=== PATIENT | female | born 1940 | race Caucasian/White ===

== ENCOUNTER → 2017-10-03 | Outpatient (CLI) | payer MEDICARE, OTHER ==
[~2017-10-03] MED LIST: ASPIR 8181 MG PO; CALCIUM 600 +1 EAC1 PO; CIPROFLOXIN HC2.5 M1 OPHTHALMIC; DIVALPROEX SOD250 M3 PO; IMITREX100 MG PO; LOVASTAT20 PO; NABUMETONE 750750 M1 PO; NAPROSYN500 MG PO; NORCO 5-325 TA1 EACH PO; OMEPRAZOLE20 M2 PO; TRAMADOL 50 MG50 MG PO; TRIAMCINOLONE A80 G2 TOP; TYLENOL325 MG PO; VERAPAMIL HCL80 MG; ZOLOFT50 MG PO
== END ==
LOC: M.RAD 15:15
DX: Z12.31 Encounter for screening mammogram for malignant neoplasm of breast (principal); E78.00 Pure hypercholesterolemia, unspecified

== ENCOUNTER 2017-10-09 17:57 | Inpatient (IN) | payer MEDICARE, OTHER ==
[~2017-10-09] VITALS: Ht 170.2 cm; Wt 83.0 kg
[~2017-10-09 17:57] MED LIST changes: -TYLENOL325 MG PO
[2017-10-09 18:01] VITALS: BP 142/64
[2017-10-09 18:23] LABS: ABSOLUTE BASOPHILS 0.2 thou/uL (0.0-0.2); ABSOLUTE EOSINOPHILS 0.2 thou/uL (0.0-0.7); ABSOLUTE LYMPHOCYTES 2.9 thou/uL (0.8-5.3); ABSOLUTE MONOCYTES 1.1 thou/uL (0.0-1.2); ABSOLUTE NEUTROPHILS 10.7 thou/uL (1.6-8.1); BASOPHILS 1.2 %; EOSINOPHILS 1.2 %; HEMATOCRIT 39.6 % (37.0-47.0); HEMOGLOBIN 13.2 gm/dL (12.0-15.0); LYMPHOCYTES 19.1 %; MCH 30.7 pg (26.0-34.0); MCHC 33.3 g/dL (28.0-37.0); MCV 92.2 fL (80.0-100.0); MONOCYTES 7.4 %; MPV 9.8 fl. (7.2-11.1); NUCLEATED RBCS 0 /100WBC; PLATELET COUNT* 217 thou/uL (150-400); POLYS 71.1 %; RBC 4.29 mil/uL (4.20-5.00); RDW-CV 13.9 % (10.5-14.5); WBC 15.1 thou/uL (4.0-11.0)
[2017-10-09 18:35] LABS: ANION GAP 10 mmol/L (7-16); BUN 38 mg/dL (7-18); CALCIUM 8.4 mg/dL (8.5-10.1); CHLORIDE 106 mmol/L (98-107); CO2 23 mmol/L (21-32); CREATININE 0.8 mg/dL (0.6-1.3); GLUCOSE 128 mg/dL (70-99); POTASSIUM 4.3 mmol/L (3.5-5.1); SODIUM 139 mmol/L (136-145)
[2017-10-09 18:38] LABS: APTT 25.5 Seconds (25.0-31.3)
[2017-10-09 18:46] LABS: ALBUMIN 3.7 g/dL (3.4-5.0); ALKALINE PHOSPHATASE 61 U/L (46-116); NT-PRO BRAIN NAT PEPTIDE 181 pg/mL (<300); SGOT 20 U/L (15-37); SGPT 29 U/L (30-65); TOTAL BILIRUBIN 0.4 mg/dL (<0.1-1.0); TROPONIN-I LEVEL <0.06 ng/mL (<0.06)
[2017-10-09 19:45] VITALS: BP 129/63
[2017-10-10] VITALS: BP 87/45
[2017-10-10 04:00] VITALS: BP 127/66
[2017-10-10 08:00] VITALS: BP 118/64
--- NOTE | 2017-10-10 10:30 | EKG ---
[place] [address] ELECTROCARDIOGRAM REPORT Name: KIRBY JOAQUIN Room: [address] ADM IN M.R.#: [id number] Admission: 10/09/17 Attend Phys: Perico Berry MD Discharge: Date of : 44 Report #: [id number] THIS REPORT FOR: //name// [facility] ED Test Date: 2017-10-09 Test Time: 18:11:19 Pat Name: KIRBY JOAQUIN Department: Room: [facility] Gender: F [employer] Supervisor: Ed ROMERO : 1940 Requested By: Antony Escalera Order Number: [id number] MD: Skyler Izquierdo Measurements Intervals Valier Rate: 59 P: 46 VA: 181 QRS: 2 QRSD: 93 T: 91 QT: 464 QTc: 460 Interpretive Statements Sinus rhythm Abnormal R-wave progression, early transition LVH by voltage with repolarization changes Compared to ECG 04/08/2010 22:38:29 Left ventricular hypertrophy now present Electronically Signed On 10-10-2017 10:30:02 CDT by Skyler Izquierdo [email or web address] <ELECTRONICALLY SIGNED> By: Skyler Izquierdo MD, [facility] 10/10/17 1030 1811 1811 Skyler Izquierdo MD, [facility] /EPI
--- NOTE | 2017-10-10 15:30 | 2DMMODE ---
[place] [address] 2 D/M-MODE ECHOCARDIOGRAM Name: KIRBY JOAQUIN Room: [address] IN [facility]#: [id number] Admission: 10/09/17 Attend Phys: Perico Berry, Discharge: Date of : 44 Date of Service: 10/10/17 1530 Report #: [id number] THIS REPORT FOR: //name// APPROVED REPORT Study performed: 10/10/2017 14:16:51 EXAM: Comprehensive 2D, Doppler, and color-flow Echocardiogram Patient Location: In-Patient Room #: [facility] Status: routine BSA: 1.95 HR: 77 bpm BP: 118/64 mmHg Rhythm: NSR Other Information Study Quality: Good Indications Dizziness 2D Dimensions LVEF(%): 79.91 (>50%) IVSd: 10.77 (7-11mm) LVOT Diam: 19.44 (18-24mm) LVDd: 50.72 mm PWd: 9.04 (7-11mm) Ascending Ao: 35.74 (22-36mm) LVDs: 25.98 (25-40mm) Aortic Root: 28.26 mm Souza's LVEF: 79.91 % Volumes Left Atrial Volume (Systole) LA ESV Index: 29.00 mL/m2 Aortic Valve AoV Peak Vaibhav.: 1.60 m/s AO Peak Gr.: 10.22 mmHg LVOT Max P.66 mmHg AO Mean Gr.: 5.30 mmHg LVOT Mean P.95 mmHg LVOT Max V: 1.29 m/s AO V2 VTI: 30.10 cm LVOT Mean V: 0.78 m/s VIKTOR (VTI): 2.52 cm2 LVOT V1 VTI: 25.56 cm Mitral Valve E/A Ratio: 0.72 [place] [address] 2 D/M-MODE ECHOCARDIOGRAM Name: KIRBY JOAQUIN Room: [address] IN .R.#: [id number] Admission: 10/09/17 Attend Phys: Perico Berry, Discharge: Date of : 44 Date of Service: 10/10/17 1530 Report #: [id number] MV Decel. Time: 302.50 ms MV E Max Vaibhav.: 0.59 m/s MV PHT: 87.73 ms MVA (PHT): 2.51 cm2 TDI E/Lateral E': 5.90 E/Medial E': 8.43 Medial E' Vaibhav.: 0.07 m/s Lateral E' Vaibhav.: 0.10 m/s Pulmonary Valve PV Peak Vaibhav.: 1.13 m/s PV Peak Gr.: 5.11 mmHg Tricuspid Valve RAP Estimate: 5.00 mmHg TR Peak Gr.: 22.26 mmHg RVSP: 27.26 mmHg PA Pressure: 27.26 mmHg Left Ventricle The left ventricle is normal size. There is normal LV segmental wall motion. There is normal left ventricular wall thickness. Left ventricular systolic function is normal. The left ventricular ejection fraction is within the normal range. LVEF is 65-70%. Grade I - abnormal relaxation pattern. Right Ventricle The right ventricle is normal size. The right ventricular systolic function is normal. Atria Left atrium is mildly dilated. The right atrium size is normal. Aortic Valve The aortic valve is normal in structure. Mild aortic regurgitation. There is no aortic valvular stenosis. Mitral Valve The mitral valve is normal in structure. Mild mitral regurgitation. No evidence of mitral valve stenosis. Tricuspid Valve The tricuspid valve is normal in structure. Trace tricuspid regurgitation. pa pressure 30 mm [place] [address] 2 D/M-MODE ECHOCARDIOGRAM Name: KIRBY JOAQUIN Room: [address] IN [facility]#: [id number] Admission: 10/09/17 Attend Phys: Perico Berry, Discharge: Date of : 44 Date of Service: 10/10/17 1530 Report #: [id number] The pulmonary valve is normal in structure. There is no pulmonic valvular regurgitation. Great Vessels The aortic root is normal in size. IVC is normal in size and collapses with >50% inspiration Pericardium There is no pericardial effusion. <Conclusion> LVEF is 65-70%. Left atrium is mildly dilated. Mild aortic regurgitation. Mild mitral regurgitation. <ELECTRONICALLY SIGNED> By: Skyler Izquierdo MD, FACC 10/10/17 1530 1530 1530 Skyler Izquierdo MD, FACC /INF
[2017-10-10 15:31] VITALS: BP 105/50
[2017-10-10 17:11] VITALS: BP 105/50
--- NOTE | 2017-10-17 08:35 | CON ---
[address] [address] CONSULTATION Name: KIRBY JOAQUIN Room: [address] IN M.R.#: [id number] Admission: 10/09/17 Attend Phys: Perico Berry MD Discharge: 10/10/17 Date of : 44 Report #: [id number] THIS REPORT FOR: //name// CC: Perico Miranda DATE OF SERVICE: 10/10/2017 HISTORY OF PRESENT ILLNESS: This is a 77-year-old female patient who was evaluated by me for headache and dizziness. She indicates that she has a longstanding headache virtually all her adult life. She has been diagnosed with migraine headache. She had dizziness this time and this dizziness was generalized. It started spontaneously without any trauma. There was no aggravating or relieving factor for it. She feels much better this morning than she did yesterday, but this morning she has some headache. REVIEW OF SYSTEMS: Positive for longstanding history of migraine. This dizziness is new. She usually does not get dizzy. She has a history of hernia surgery, bladder lift, high blood pressure. She does have a history of high cholesterol and hiatus hernia. She does take 81 mg of aspirin daily. She is on a statin. She has not had any ear problems in the past. Her vision is about the same. She is not having any cardiac, respiratory, GI, , musculoskeletal, constitutional, dermatological, hematological, psychiatric, throat, allergic symptom associated with present symptomatology. PAST MEDICAL HISTORY: Negative for dizziness. FAMILY HISTORY: Negative for any early age stroke. SOCIAL HISTORY: She does not believe she is under any stress. She denies the use of alcohol and tobacco. PHYSICAL EXAMINATION: Indicate the patient is alert, responsive, able to follow simple and complex command. Cranial nerve examination 2-12 looks unremarkable. She has symmetrical strength, sensation, reflexes and tone in all 4 extremities. There is no meningeal sign. There is no carotid bruit. Cardiac examinations appear unremarkable. No respiratory difficulty was noticed. Pulses are palpable. She has no edema, cyanosis or jaundice. She is a well-developed individual who does not have any dysmorphic features of eyes, ears and face. Her thyroid examination showed no mass. Blood pressure is 118/64, respirations 15, pulse is 67, temperature is 98.1. LABORATORY DATA: White count is trace high at 15.1. Her MRI and MRA of the brain was reviewed and they were unremarkable. IMPRESSION: It is unlikely that there is any [place] [address] CONSULTATION Name: KIRBY JOAQUIN Room: [address]#: [id number] Admission: 10/09/17 Attend Phys: Perico Berry MD Discharge: 10/10/17 Date of : 44 Report #: [id number] patient's dizziness. It can be ENT or some systemic pathology. I will suggest working her up for alternate etiology for the patient's symptom, especially ENT and cardiac. RECOMMENDATIONS: 1. We will check the patient's carotid Doppler. 2. I will stop her sumatriptan. 3. We will await the carotid Doppler. 4. Because of dizziness I will go ahead and do an echocardiogram. 5. Her sed rate is already done, is unremarkable. 6. If all these tests are okay, then from neurological perspective we do not need to do anything if she becomes better. Thank you very much for this referral. <ELECTRONICALLY SIGNED> By: Nikolay Browne MD 10/17/17 0835 1216 1814Pminerva Browne MD /nt
[2017-10-25] MEDS ORDERED: NABUMETONE 750750 M1 PO (14:26)
[2017-10-25] MEDS ORDERED: TRAMADOL 50 MG50 MG PO (14:26)
[2017-10-26] MEDS ORDERED: TYLENOL325 MG PO (16:47)
== END 2017-10-10 17:53 | disposition home or self-care (01) | DRG 641 ==
LOC: M.ERS 17:57 → M.2W 18:50 → M.TBA-ER 18:50 → M.2W 19:50
PROVIDERS: Family Medicine
DX: E86.0 Dehydration (principal); I51.89 Other ill-defined heart diseases; K21.9 Gastro-esophageal reflux disease without esophagitis; E78.00 Pure hypercholesterolemia, unspecified; I11.9 Hypertensive heart disease without heart failure; G43.909 Migraine, unspecified, not intractable, without status migrainosus; Z79.82 Long term (current) use of aspirin; Z79.899 Other long term (current) drug therapy; Z90.49 Acquired absence of other specified parts of digestive tract

== ENCOUNTER → 2017-10-25 | Outpatient (CLI) | payer MEDICARE, OTHER ==
[~2017-10-25] MED LIST changes: +TYLENOL325 MG PO
--- NOTE | 2017-11-09 16:41 | PAINCON ---
[address] [address] PAIN MANAGEMENT CONSULTATION Name: KIRBY JOAQUIN Room: [facility]#: [id number] Admission: 10/25/17 Attend Phys: Julio Lopez MD Discharge: Date of : 44 Report #: [id number] THIS REPORT FOR: //name// CC: Julio Miranda DO DATE OF SERVICE: 10/25/2017 CHIEF COMPLAINT: Low back pain and pain that radiates down into the right leg and foot with occasional numbness and tingling. FOLLOWUP HISTORY: The patient has been followed in the Pain Clinic by Dr. Antony Briones. This is my first visit with the patient. She has a history of low back pain. She has undergone epidural steroid injections in the past and found benefit from these. She describes pain that is radiating down into her right leg and her foot. She has some numbness and tingling in this area. This problem has been going on for a number of years. Epidural steroid injections have provided benefit. She denied any antecedent traumas. No overuse. Notes that activities of daily living such as walking, sitting, standing and activities of daily living can exacerbate her pain. Feels that tramadol and Relafen can be helpful. Rates her pain as an 8/10 at this juncture. ALLERGIES: No known drug allergies. MEDICATIONS: Aspirin 81 mg chewable, calcium, vitamin D3, divalproex 250 mg b.i.d., lovastatin 20 mg tablets total of 40 mg daily, Relafen 750 mg b.i.d., omeprazole 20 mg tablets 40 mg daily, Zoloft 50 mg tablets 100 mg daily, Imitrex 100 mg p.r.n., tramadol 50 mg t.i.d., verapamil 80 mg t.i.d., Tylenol p.r.n. PAST MEDICAL HISTORY: Hypertension, gallbladder disease, stomach problems, emotional problems, migraine headaches. PAST SURGICAL HISTORY: Hysterectomy in 1999, hiatal hernia repair in 2010, cholecystectomy in 2010. SOCIAL HISTORY: She is retired from a dry cleaning job. REVIEW OF SYSTEMS: Generally good health, fatigue, weakness, wears glasses, hearing loss/ringing in the ears, frequent urination, migraine headaches. LABORATORY DATA: No recent laboratory values are available at the time of our interview. PAIN CLINIC ASSESSMENT: 1. History of osteoarthritis. The patient states she is [place] [address] PAIN MANAGEMENT CONSULTATION Name: KIRBY JOAQUIN Room: [facility]#: [id number] Admission: 10/25/17 Attend Phys: Julio Lopez MD Discharge: Date of : 44 Report #: [id number] osteoarthritis or rheumatoid arthritis. 2. Height 5 feet 7 inches. Weight 186 pounds, BMI is 29. 3. Vital Signs: Blood pressure 132/68, heart rate 74, respiratory rate 16, room air saturation 95%, temperature 98.2. 4. Pain intensity 2 when sitting, can rise to a level of 8 with activity. 5. Fall risk. The patient has not fallen in the last 3 months. 6. Blood thinner. The patient is not on a blood thinning medication. 7. Hypertension. The patient is being treated for hypertension. 8. Opioid therapy greater than 6 weeks. The patient is not on a chronic opioid medication other than use of tramadol. 9. Risk assessment tool, low for use of opioid medication. 10. Functional assessment tool. 11. Recreational drug use: The patient denies. 12. Tobacco: The patient denies. 13. Alcohol: The patient denies use of alcoholic beverages. PHYSICAL EXAMINATION: GENERAL: The patient is a well-developed, well-nourished white female. Appears her stated age. She is alert and oriented x 3. Speech is fluent. HEENT: Normocephalic, atraumatic. Extraocular eye muscles intact. Sclerae nonicteric. Mucous membranes are moist. Hearing within normal limits. NECK: Without adenopathy or JVD. HEART: Regular rate. ABDOMEN: Nontender. CHEST: Clear to auscultation. EXTREMITIES: Upper extremity muscle strength is judged to be 5/5 for the major muscle groups in the upper extremity without sensory deficits. The patient without significant kyphosis or lordosis. Lower extremity muscle strength is judged to be 5/5 for the major muscle groups in the lower extremity. The patient has pain and discomfort with pain radiating down into the right leg with occasional numbness and tingling involving the right foot in the L5-S1 dermatomal distribution. IMPRESSION: 1. Exacerbation of lumbar radiculopathy involving the right foot with pain radiating down the L5-S1 distribution. 2. Hypertension. 3. Gallbladder disease. 4. Stomach problems. 5. Emotional problems. 6. Migraine headaches. RECOMMENDATIONS: We discussed treatment options with the patient. Risks and benefits of an epidural steroid injection were explained. Possible complications of the procedure were reviewed. The possible complications, which could be but are not limited to infection, increased muscle soreness, headache, [place] [address] PAIN MANAGEMENT CONSULTATION Name: KIRBY JOAQUIN Room: [facility]#: [id number] Admission: 10/25/17 Attend Phys: uJlio Lopez MD Discharge: Date of : 44 Report #: [id number] bleeding, worsening of pain, no improvement in pain were discussed. The patient elects to proceed. PROCEDURE NOTE: The patient was taken to the examination area. She was assisted in getting on the fluoroscopy table. Her back was sterilely prepped with a Betadine solution. A pillow was placed under the abdomen to bolster improve positioning. Fluoroscopy used in the anterior, posterior as well as lateral viewing were instituted. A midline approach at the L5-S1 area directed in the left paramedian area was performed. After appropriate placement, a total of 80 mg Depo-Medrol, 40 mg triamcinolone and 2 mL of 0.25% bupivacaine was injected. The patient tolerated the procedure well. There were no complications. Total of 15 seconds fluoroscopy time was used. The patient's pain decreased to 0 at the time of discharge. She will follow up in the future as needed. A script for Relafen 750 mg b.i.d. and tramadol 50 mg q.i.d. were written. We would like to thank you for letting us participate in her care. We hope she continues to improve. <ELECTRONICALLY SIGNED> By: Julio Lopez MD 11/09/17 1641 1005 1740N. Austin Lopez MD /nt
== END | disposition home or self-care (01) ==
LOC: M.PC 04:51
DX: M54.16 Radiculopathy, lumbar region (principal); G89.29 Other chronic pain; M25.571 Pain in right ankle and joints of right foot; I10 Essential (primary) hypertension; G43.909 Migraine, unspecified, not intractable, without status migrainosus; K92.9 Disease of digestive system, unspecified; K82.9 Disease of gallbladder, unspecified; F98.9 Unspecified behavioral and emotional disorders with onset usually occurring in childhood and adolescence; Z90.710 Acquired absence of both cervix and uterus; Z90.49 Acquired absence of other specified parts of digestive tract; Z98.890 Other specified postprocedural states; Z79.899 Other long term (current) drug therapy; Z79.82 Long term (current) use of aspirin

== ENCOUNTER 2020-05-03 10:55 | Emergency (ER) | payer MEDICARE, OTHER ==
[~2020-05-03] VITALS: Ht 170.2 cm; Wt 86.2 kg
[2020-05-03 11:03] VITALS: BP 149/81
[2020-05-03] MEDS ORDERED: DIAZEPAM 10 MG10 M2 PO (11:08)
[2020-05-03] MEDS ORDERED: PERIDEX 0.12%473 M1 SWISH&SPIT (11:26)
[2020-05-03] MEDS ORDERED: AMOXIL 875 MG875 M1 PO (11:26)
== END 2020-05-03 11:30 | disposition home or self-care (01) ==
LOC: M.ERS 10:55
DX: K04.7 Periapical abscess without sinus (principal); K21.9 Gastro-esophageal reflux disease without esophagitis; E78.00 Pure hypercholesterolemia, unspecified

== ENCOUNTER 2020-07-22 19:31 | Emergency (ER) | payer MEDICARE, OTHER ==
[~2020-07-22] VITALS: Ht 170.2 cm; Wt 85.3 kg
[~2020-07-22 19:31] MED LIST changes: +AMOXIL 875 MG875 M1 PO; +DIAZEPAM 10 MG10 M2 PO; +PERIDEX 0.12%473 M1 SWISH&SPIT
[2020-07-22 21:13] LABS: URINE BILIRUBIN NEGATIVE (Negative); URINE BLOOD NEGATIVE (Negative); URINE CLARITY CLEAR; URINE COLOR YELLOW; URINE GLUCOSE-RANDOM NEGATIVE (Negative); URINE KETONES NEGATIVE (Negative); URINE NITRITE-REFLEX NEGATIVE (Negative); URINE PROTEIN NEGATIVE (Negative)
[2020-07-22 21:17] LABS: URINE LEUKOCYTES-REFLEX 3+ (Negative)
[2020-07-22 21:22] LABS: HYALINE CASTS 0-3 Few /LPF (None Seen); MUCUS 0-3 Light strn/LPF (None Seen); SQUAMOUS >10 Many /LPF (0-3)
[2020-07-22 21:23] LABS: BACTERIA-REFLEX 1-9 Few /HPF (None Seen); CRYSTALS None Seen /LPF (None Seen); URINE WBC-REFLEX 6-15 Few /HPF (0-5)
[2020-07-22 21:24] LABS: URINE RBC None Seen /HPF (0-2)
[2020-07-22 21:33] LABS: INFLUENZA A ANTIGEN Negative (Negative); INFLUENZA B ANTIGEN Negative (Negative)
[2020-07-22] MEDS ORDERED: MACROBID 100 M100 M1 PO (21:35)
[2020-07-22 22:12] VITALS: BP 113/67
== END 2020-07-22 22:13 | disposition home or self-care (01) ==
LOC: M.ERS 19:31
PROVIDERS: Personal Emergency Response Attendant
DX: N39.0 Urinary tract infection, site not specified (principal); Z20.822 Contact with and (suspected) exposure to COVID-19; J06.9 Acute upper respiratory infection, unspecified; K21.9 Gastro-esophageal reflux disease without esophagitis; E78.00 Pure hypercholesterolemia, unspecified; Z79.82 Long term (current) use of aspirin; Z79.899 Other long term (current) drug therapy; Z98.890 Other specified postprocedural states